=== PATIENT | male | born 1975 | race Hispanic/Latino ===

== ENCOUNTER 2021-09-30 06:03 | Inpatient (IN) | payer OTHER, MEDICARE ==
[~2021-09-30] VITALS: Ht 170.2 cm; Wt 96.2 kg
[2021-09-30] VITALS (17 sets, daily range): BP systolic 135–170; BP diastolic 81–94
[2021-09-30 06:59] LABS: BASOPHILS % (AUTO) 0.5 % (0.0-5.0); EOSINOPHILS % (AUTO) 14.6 % (0.0-8.0); HEMATOCRIT 27.1 % (42-54); LYMPHOCYTES % (AUTO) 12.1 % (21.0-51.0); MEAN CORPUSCULAR HEMOGLOBIN 26.7 pg (27.0-33.0); MEAN CORPUSCULAR HGB CONC 31.7 g/dL (32.0-36.0); MEAN CORPUSCULAR VOLUME 84.2 fL (79-99); MONOCYTES % (AUTO) 13.3 % (3.0-13.0); NEUTROPHILS % (AUTO) 57.3 % (40.0-77.0); PLATELET COUNT (AUTO) 249 K/uL (130-400); RED BLOOD CELL COUNT(AUTO) 3.22 MIL/uL (4.50-6.20); RED CELL DISTRIBUTION WIDTH 16.1 % (11.0-15.5); WHITE BLOOD COUNT (AUTO) 9.5 K/uL (4.8-10.8)
[2021-09-30 07:18] LABS: ALBUMIN 2.8 g/dL (3.5-5.0); BILIRUBIN,TOTAL 0.5 mg/dL (0.2-1.0); TOTAL PROTEIN, SERUM 7.2 g/dL (6.0-8.3)
[2021-09-30 07:23] LABS: B-TYPE NATRIURETIC PEPTIDE 202 pg/mL (0-100)
[2021-09-30 07:25] LABS: CREATININE 10.5 mg/dL (0.5-1.5); POTASSIUM 6.7 mmol/L (3.5-5.1)
[2021-09-30] MEDS ORDERED: ICOS1CAP2 PO (08:47)
[2021-09-30] MEDS ORDERED: RIVA2.5T PO (08:47)
[2021-09-30] MEDS ORDERED: ATOR10 PO (08:47)
[2021-09-30] MEDS ORDERED: LOSA100T58 PO (08:47)
[2021-09-30] MEDS ORDERED: NIFE-39 PO (08:47)
[2021-09-30] MEDS ORDERED: FOLI0.8T5 PO (08:47)
[2021-09-30] MEDS ORDERED: BUME2TAB5 PO (08:47)
[2021-09-30] MEDS ORDERED: INSULIN HUMULIN R 100 UNIT/ML 3ML IV ONE (10:00)
[2021-09-30] MEDS ORDERED: CALCIUM GLUC 1GM/10ML VIAL IV SCH (10:00)
[2021-09-30] MEDS ORDERED: NA ZIRCON CYCLOSIL(LOKELMA 10GM) PO SCH (10:00)
[2021-09-30] MEDS ORDERED: DEXTROSE 50%-WATER 50 ML DISP.SYRIN IV ONE (10:00)
[2021-09-30] MEDS ORDERED: PANTOPRAZOLE 40 MG TAB DR PO SCH (10:00)
[2021-09-30] MEDS ORDERED: PHARMACY COMMUNICATION MISC SCH (10:00)
[2021-09-30] MEDS ORDERED: CALCIUM GLUC 1GM/10ML VIAL IVPB SCH (10:30)
[2021-09-30] MEDS ORDERED: NIFEDIPINE ER 30 MG TAB PO SCH (10:30)
[2021-09-30 10:41] LABS: APPEARANCE,URINE Clear (CLEAR); BILIRUBIN,URINE Negative (NEGATIVE); COLOR,URINE Yellow (YELLOW); GLUCOSE, URINE (UA) 500 mg/dL (NEGATIVE); KETONES,URINE Negative (NEGATIVE); LEUKOCYTE ESTERASE ,URINE Negative (NEGATIVE); NITRATE,URINE Negative (NEGATIVE); OCCULT BLOOD,URINE Negative (NEGATIVE); PROTEIN,URINE 300 mg/dL (NEGATIVE); UROBILINOGEN,URINE 0.2 mg/dL (0.2-1.0)
[2021-09-30] MEDS: NIFEDIPINE ER 30 MG TAB PO SCH (10:58)
[2021-09-30 11:06] LABS: BACTERIA,URINE Rare /HPF (None Seen); RBC,URINE None Seen /HPF (0-1)
[2021-09-30] MEDS: INSULIN HUMULIN R 100 UNIT/ML 3ML SQ SCH ×3 (11:30→21:00)
[2021-09-30] MEDS ORDERED: SUCR500T PO (14:42)
[2021-09-30] MEDS ORDERED: INSLAN SQ (14:44)
[2021-09-30] MEDS ORDERED: INSU100V SQ (14:44)
[2021-09-30] MEDS ORDERED: [UNRECOGNIZED DRUG - REMARK] MISC SCH (17:30)
[2021-09-30 20:44] LABS: HEPATITIS B SURFACE ANTIGEN Non-Reactive (Negative)
[2021-09-30] MEDS: HEPARIN 5,000 UNIT VIAL SQ SCH (20:48)
[2021-09-30] MEDS ORDERED: HEPARIN 5,000 UNIT VIAL IV SCH (21:00)
[2021-09-30] MEDS ORDERED: SOLU-MEDROL 125MG VIAL IVP ONE (21:00)
[2021-09-30] MEDS ORDERED: RIVAROXABAN 2.5 MG TABLET PO SCH (21:00)
[2021-09-30] MEDS ORDERED: DIPHENHYDRAMINE HCL 25 MG CAPSULE PO ONE (21:00)
[2021-09-30] MEDS: MINERAL OIL/PETROLATUM,WHITE 454 GM CREAM.GM. TP SCH (21:00)
[2021-09-30] MEDS: ATORVASTATIN 20 MG TABLET PO SCH (21:19)
[2021-09-30] MEDS: ICOSAPENT 2 GM PO SCH (21:19)
[2021-09-30] MEDS: METOPROLOL TARTRATE 25 MG TAB PO SCH (21:19)
[2021-09-30] MEDS: CLOBETASOL PROPIONATE 0.05% CR 60 GM CRM TP SCH (21:20)
[2021-09-30] MEDS: IODOSORB GEL 40GM TP SCH (21:57)
[2021-09-30] MEDS: NEOMY SULF/BACITRA/POLYMYXIN B 1 EACH PACKET TP SCH (22:01)
[2021-10-01] VITALS (7 sets, daily range): BP systolic 107–149; BP diastolic 51–99
[2021-10-01 05:34] LABS: MAGNESIUM 2.3 mg/dL (1.80-2.40); PHOSPHORUS 6.7 mg/dL (2.5-4.9); THYROID STIMULATING HORMONE 1.01 uIU/mL (0.36-3.74)
[2021-10-01 06:15] LABS: BASOPHILS % (AUTO) 0.5 % (0.0-5.0); EOSINOPHILS % (AUTO) 16.3 % (0.0-8.0); HEMATOCRIT 27.6 % (42-54); LYMPHOCYTES % (AUTO) 9.3 % (21.0-51.0); MEAN CORPUSCULAR HEMOGLOBIN 27.4 pg (27.0-33.0); MEAN CORPUSCULAR HGB CONC 32.6 g/dL (32.0-36.0); MEAN CORPUSCULAR VOLUME 83.9 fL (79-99); MONOCYTES % (AUTO) 10.6 % (3.0-13.0); NEUTROPHILS % (AUTO) 61.9 % (40.0-77.0); PLATELET COUNT (AUTO) 248 K/uL (130-400); RED BLOOD CELL COUNT(AUTO) 3.29 MIL/uL (4.50-6.20); RED CELL DISTRIBUTION WIDTH 16.2 % (11.0-15.5); WHITE BLOOD COUNT (AUTO) 8.5 K/uL (4.8-10.8)
[2021-10-01 06:32] LABS: ALBUMIN 2.6 g/dL (3.5-5.0); BILIRUBIN,TOTAL 0.5 mg/dL (0.2-1.0); CREATININE 7.5 mg/dL (0.5-1.5); POTASSIUM 5.7 mmol/L (3.5-5.1); TOTAL PROTEIN, SERUM 6.9 g/dL (6.0-8.3)
[2021-10-01] MEDS: INSULIN HUMULIN R 100 UNIT/ML 3ML SQ SCH ×4 (06:43→20:09)
[2021-10-01] MEDS ORDERED: NA ZIRCON CYCLOSIL(LOKELMA 10GM) PO SCH (08:30)
[2021-10-01] MEDS: METOPROLOL TARTRATE 25 MG TAB PO SCH ×2 (08:38→20:07)
[2021-10-01] MEDS: PANTOPRAZOLE 40 MG TAB DR PO SCH (08:38)
[2021-10-01] MEDS: Vitamin B Complex/Vit C/Folic Acid PO SCH (08:38)
[2021-10-01] MEDS: NIFEDIPINE ER 30 MG TAB PO SCH (08:39)
[2021-10-01] MEDS: HEPARIN 5,000 UNIT VIAL SQ SCH ×2 (08:39→20:09)
[2021-10-01] MEDS: ZINC PO SCH (08:48)
[2021-10-01] MEDS: DAILYVITE PO SCH (08:48)
[2021-10-01] MEDS: ICOSAPENT 2 GM PO SCH ×2 (08:49→20:06)
[2021-10-01] MEDS: CLOBETASOL PROPIONATE 0.05% CR 60 GM CRM TP SCH ×2 (08:50→20:19)
[2021-10-01] MEDS: MINERAL OIL/PETROLATUM,WHITE 454 GM CREAM.GM. TP SCH ×2 (08:51→20:49)
[2021-10-01] MEDS ORDERED: BUMETANIDE 1 MG TAB PO SCH (09:00)
[2021-10-01 11:56] LABS: INR 1.03 (0.85-1.15); PROTHROMBIN TIME 10.7 SEC (9.6-11.6)
[2021-10-01] MEDS: ATORVASTATIN 20 MG TABLET PO SCH (20:06)
[2021-10-01] MEDS: NEOMY SULF/BACITRA/POLYMYXIN B 1 EACH PACKET TP SCH (20:09)
[2021-10-01] MEDS: IODOSORB GEL 40GM TP SCH (20:19)
[2021-10-02] VITALS (19 sets, daily range): BP systolic 130–166; BP diastolic 68–94
[2021-10-02] MEDS: INSULIN HUMULIN R 100 UNIT/ML 3ML SQ SCH ×4 (06:30→20:58)
[2021-10-02] MEDS: NIFEDIPINE ER 30 MG TAB PO SCH (08:42)
[2021-10-02] MEDS: METOPROLOL TARTRATE 25 MG TAB PO SCH ×2 (08:42→20:51)
[2021-10-02] MEDS: PANTOPRAZOLE 40 MG TAB DR PO SCH (08:42)
[2021-10-02] MEDS: Vitamin B Complex/Vit C/Folic Acid PO SCH (08:42)
[2021-10-02] MEDS: MINERAL OIL/PETROLATUM,WHITE 454 GM CREAM.GM. TP SCH ×2 (08:43→20:52)
[2021-10-02] MEDS: CLOBETASOL PROPIONATE 0.05% CR 60 GM CRM TP SCH ×2 (08:43→20:53)
[2021-10-02] MEDS: HEPARIN 5,000 UNIT VIAL SQ SCH ×2 (08:50→20:57)
[2021-10-02] MEDS: ZINC PO SCH (08:51)
[2021-10-02] MEDS: DAILYVITE PO SCH (08:51)
[2021-10-02] MEDS: ICOSAPENT 2 GM PO SCH ×2 (08:51→20:52)
[2021-10-02] MEDS ORDERED: INSULIN GLARGINE 100 UNITS/ML 10 ML VIAL SQ SCH (13:30)
[2021-10-02] MEDS: FLUCONAZOLE 100 MG TAB PO SCH (15:03)
[2021-10-02] MEDS ORDERED: DIPHENHYDRAMINE HCL 25 MG CAPSULE PO PRN (16:00)
[2021-10-02] MEDS: NEOMY SULF/BACITRA/POLYMYXIN B 1 EACH PACKET TP SCH (20:50)
[2021-10-02] MEDS: ATORVASTATIN 20 MG TABLET PO SCH (20:51)
[2021-10-02] MEDS: IODOSORB GEL 40GM TP SCH (20:52)
[2021-10-03] VITALS (10 sets, daily range): BP systolic 115–163; BP diastolic 71–88
[2021-10-03 04:40] LABS: BASOPHILS % (AUTO) 0.6 % (0.0-5.0); EOSINOPHILS % (AUTO) 11.1 % (0.0-8.0); HEMATOCRIT 26.3 % (42-54); LYMPHOCYTES % (AUTO) 13.9 % (21.0-51.0); MEAN CORPUSCULAR HEMOGLOBIN 27.1 pg (27.0-33.0); MEAN CORPUSCULAR HGB CONC 31.9 g/dL (32.0-36.0); MEAN CORPUSCULAR VOLUME 84.8 fL (79-99); MONOCYTES % (AUTO) 10.8 % (3.0-13.0); NEUTROPHILS % (AUTO) 62.5 % (40.0-77.0); PLATELET COUNT (AUTO) 189 K/uL (130-400); RED CELL DISTRIBUTION WIDTH 15.8 % (11.0-15.5); WHITE BLOOD COUNT (AUTO) 6.2 K/uL (4.8-10.8)
[2021-10-03 05:25] LABS: ALBUMIN 2.8 g/dL (3.5-5.0); BILIRUBIN,TOTAL 0.4 mg/dL (0.2-1.0); CREATININE 7.4 mg/dL (0.5-1.5); POTASSIUM 4.9 mmol/L (3.5-5.1); TOTAL PROTEIN, SERUM 7.1 g/dL (6.0-8.3)
[2021-10-03] MEDS: INSULIN HUMULIN R 100 UNIT/ML 3ML SQ SCH ×4 (06:49→20:34)
[2021-10-03] MEDS: ZINC PO SCH (09:00)
[2021-10-03] MEDS: ICOSAPENT 2 GM PO SCH ×2 (09:00→20:41)
[2021-10-03] MEDS: DAILYVITE PO SCH (09:00)
[2021-10-03] MEDS: HEPARIN 5,000 UNIT VIAL SQ SCH ×2 (09:00→20:36)
[2021-10-03] MEDS: METOPROLOL TARTRATE 25 MG TAB PO SCH ×2 (09:48→20:33)
[2021-10-03] MEDS: NIFEDIPINE ER 30 MG TAB PO SCH (09:48)
[2021-10-03] MEDS: PANTOPRAZOLE 40 MG TAB DR PO SCH (09:48)
[2021-10-03] MEDS: Vitamin B Complex/Vit C/Folic Acid PO SCH (09:48)
[2021-10-03] MEDS: CLOBETASOL PROPIONATE 0.05% CR 60 GM CRM TP SCH ×2 (09:49→20:40)
[2021-10-03] MEDS ORDERED: LIDOCAINE HCL 400MG/20ML VIAL ONE ×2 (14:38→14:40)
[2021-10-03] MEDS: FLUCONAZOLE 100 MG TAB PO SCH (16:19)
[2021-10-03] MEDS: MINERAL OIL/PETROLATUM,WHITE 454 GM CREAM.GM. TP SCH ×2 (18:16→20:32)
[2021-10-03] MEDS: ATORVASTATIN 20 MG TABLET PO SCH (20:33)
[2021-10-03] MEDS: NEOMY SULF/BACITRA/POLYMYXIN B 1 EACH PACKET TP SCH (20:33)
[2021-10-03] MEDS: IODOSORB GEL 40GM TP SCH (20:40)
[2021-10-04] VITALS (18 sets, daily range): BP systolic 104–148; BP diastolic 58–91
[2021-10-04 02:58] LABS: BASOPHILS % (AUTO) 0.9 % (0.0-5.0); EOSINOPHILS % (AUTO) 18.9 % (0.0-8.0); HEMATOCRIT 25.8 % (42-54); LYMPHOCYTES % (AUTO) 16.5 % (21.0-51.0); MEAN CORPUSCULAR HEMOGLOBIN 26.6 pg (27.0-33.0); MEAN CORPUSCULAR HGB CONC 31.8 g/dL (32.0-36.0); MEAN CORPUSCULAR VOLUME 83.8 fL (79-99); MONOCYTES % (AUTO) 10.4 % (3.0-13.0); NEUTROPHILS % (AUTO) 52.2 % (40.0-77.0); PLATELET COUNT (AUTO) 159 K/uL (130-400); RED BLOOD CELL COUNT(AUTO) 3.08 MIL/uL (4.50-6.20); RED CELL DISTRIBUTION WIDTH 15.8 % (11.0-15.5); WHITE BLOOD COUNT (AUTO) 8.7 K/uL (4.8-10.8)
[2021-10-04 03:23] LABS: INR 0.96 (0.85-1.15); PROTHROMBIN TIME 10.5 SEC (9.6-11.6)
[2021-10-04] MEDS: INSULIN HUMULIN R 100 UNIT/ML 3ML SQ SCH ×2 (05:57→12:40)
[2021-10-04] MEDS: Vitamin B Complex/Vit C/Folic Acid PO SCH (08:37)
[2021-10-04] MEDS: PANTOPRAZOLE 40 MG TAB DR PO SCH (08:38)
[2021-10-04] MEDS: METOPROLOL TARTRATE 25 MG TAB PO SCH (08:38)
[2021-10-04] MEDS: HEPARIN 5,000 UNIT VIAL SQ SCH (08:40)
[2021-10-04] MEDS: NIFEDIPINE ER 30 MG TAB PO SCH (09:00)
[2021-10-04] MEDS: MINERAL OIL/PETROLATUM,WHITE 454 GM CREAM.GM. TP SCH (09:00)
[2021-10-04] MEDS: CLOBETASOL PROPIONATE 0.05% CR 60 GM CRM TP SCH (12:42)
[2021-10-04] MEDS ORDERED: FLUC200T12 PO (13:38)
[2021-10-04] MEDS: FLUCONAZOLE 100 MG TAB PO SCH (14:12)
[2021-10-04] MEDS ORDERED: LOSA25TA41 PO (15:32)
== END 2021-10-04 18:25 | disposition left against medical advice (07) | DRG 606 ==
LOC: EDH 06:03 → EDHIP 10:07 → 4CH 14:00 → 2AH 10-01 21:46
PROVIDERS: ADMIT Internal Medicine; ATTEND Internal Medicine
PROC: 5A1D70Z Performance of Urinary Filtration, Intermittent, Less than 6 Hours Per Day (ICD-10-PCS; 2021-09-30)
PROC: 5A1D70Z Performance of Urinary Filtration, Intermittent, Less than 6 Hours Per Day (ICD-10-PCS; 2021-10-02)
PROC: 0J2TXYZ Change Other Device in Trunk Subcutaneous Tissue and Fascia, External Approach (ICD-10-PCS; principal; 2021-10-03)
PROC: 5A1D70Z Performance of Urinary Filtration, Intermittent, Less than 6 Hours Per Day (ICD-10-PCS; 2021-10-04)
DX: L27.0 Generalized skin eruption due to drugs and medicaments taken internally (principal); N18.6 End stage renal disease; I12.0 Hypertensive chronic kidney disease with stage 5 chronic kidney disease or end stage renal disease; T81.30XA Disruption of wound, unspecified, initial encounter; M86.8X7 Other osteomyelitis, ankle and foot; L29.9 Pruritus, unspecified; Z20.822 Contact with and (suspected) exposure to COVID-19; I16.0 Hypertensive urgency; E87.5 Hyperkalemia; E78.5 Hyperlipidemia, unspecified; E78.00 Pure hypercholesterolemia, unspecified; E66.01 Morbid (severe) obesity due to excess calories; E11.51 Type 2 diabetes mellitus with diabetic peripheral angiopathy without gangrene; Z53.29 Procedure and treatment not carried out because of patient's decision for other reasons; Z83.3 Family history of diabetes mellitus; Z99.2 Dependence on renal dialysis; Z89.422 Acquired absence of other left toe(s); E11.42 Type 2 diabetes mellitus with diabetic polyneuropathy; E11.22 Type 2 diabetes mellitus with diabetic chronic kidney disease; D64.9 Anemia, unspecified; Z68.32 Body mass index [BMI] 32.0-32.9, adult; Z88.1 Allergy status to other antibiotic agents; Z88.0 Allergy status to penicillin; E11.69 Type 2 diabetes mellitus with other specified complication; R21 Rash and other nonspecific skin eruption; K12.30 Oral mucositis (ulcerative), unspecified; Z68.33 Body mass index [BMI] 33.0-33.9, adult; Y83.8 Other surgical procedures as the cause of abnormal reaction of the patient, or of later complication, without mention of misadventure at the time of the procedure; Y92.89 Other specified places as the place of occurrence of the external cause; T36.8X5A Adverse effect of other systemic antibiotics, initial encounter
CPT/HCPCS: 36415; 36581; 71045; 73630; 77001; 80053; 81001; 82550; 82948; 83036; 83605; 83735; 83880; 84100; 84145; 84443; 84484; 85025; 85610; 85651; 86140; 86704; 86706; 87040; 87070; 87076; 87088; 87340; 87635; 90935; 93005; 99291; C1750; C1769; C9803; G0378; J0610; J1644; J1815; J2930; J3490; J7070; Q0163